=== PATIENT | female | born 1970 | race Hispanic/Latino ===

== ENCOUNTER 2021-06-28 06:03 | Emergency (ER) | payer OTHER ==
[~2021-06-28] VITALS: Ht 152.4 cm; Wt 99.8 kg
[2021-06-28] MEDS ORDERED: PREDNISONE20 MG PO (06:12)
== END 2021-06-28 06:24 | disposition home or self-care (01) ==
LOC: ER 06:15
DX: R06.02 Shortness of breath (principal); J45.909 Unspecified asthma, uncomplicated
CPT/HCPCS: 99282